=== PATIENT | male | born 1980 | race Caucasian/White ===

== ENCOUNTER → 2023-06-10 | Outpatient (CLI) | payer SELFPAY ==
--- NOTE | 2023-06-10 14:13 | XR ---
EXAMINATION TYPE: XR chest 2V DATE OF EXAM: 06/10/2023 COMPARISON: None INDICATION: Cough,Smoker TECHNIQUE: Frontal and lateral views of the chest are obtained. FINDINGS: The heart size is normal. The pulmonary vasculature is normal. The lungs are clear. Consider evaluation for screening low-dose CT chest IMPRESSION: 1. No acute pulmonary process.
== END | disposition home or self-care (01) ==
LOC: RADXRYALE 13:52
PROVIDERS: ATTEND Internal Medicine
DX: R05.9 Cough, unspecified (principal); F17.200 Nicotine dependence, unspecified, uncomplicated
CPT/HCPCS: 71046